=== PATIENT | male | born 1985 | race Caucasian/White ===

== ENCOUNTER 2017-03-01 20:18 | Emergency (ER) ==
[2017-03-01 20:29] VITALS: BMI 22.4
[2017-03-01 20:54] LABS: BASOPHILS # (AUTO) 0.1 K/uL (0-0.2); BASOPHILS % (AUTO) 0.5 % (0.0-3.0); EOSINOPHILS # (AUTO) 0.3 K/ul (0.0-0.7); HEMATOCRIT 47.1 % (42.0-52.0); HEMOGLOBIN 16.2 g/dl (14.0-18.0); IMMATURE GRANULOCYTE % (AUTO) 0.7 % (0.0-5.0); LYMPHOCYTES # (AUTO) 2.8 K/uL (0.60-3.4); MEAN CORPUSCULAR HEMOGLOBIN 28.9 pg (27.0-31.0); MEAN CORPUSCULAR HGB CONC 34.4 (31.8-35.4); MEAN CORPUSCULAR VOLUME 84.1 fl (80.0-94.0); MONOCYTES # (AUTO) 0.6 K/uL (0.4-2.0); MONOCYTES % (AUTO) 6.4 (0-10); NEUTROPHILS # (AUTO) 6.1 K/ul (2.0-6.9); NEUTROPHILS % (AUTO) 61.4; PLATELET COUNT 197 10^3/uL (140-440); WHITE BLOOD COUNT 9.86 K/ul (4.2-10.2)
[2017-03-01 20:56] LABS: ADD URINE MICROSCOPIC NO; BILIRUBIN,URINE Negative (NEGATIVE); KETONES,URINE Negative (NEGATIVE); LEUKOCYTE ESTERASE ,URINE Negative (NEGATIVE); NITRITE,URINE Negative (NEGATIVE); PROTEIN,URINE Negative (NEGATIVE); URINE, BLOOD Negative (NEGATIVE)
--- NOTE | 2017-03-01 21:06 | ED.PDOC ---
General ED Provider: Dr. ROSE DALLAS-ER Chief Complaint: Dizziness Stated Complaint: kacie had spells of dizziness, weakness for over a month Time Seen by Physician: 20:25 Mode of Arrival: Walk-In Information Source: Patient Exam Limitations: No limitations Nursing and Triage Documentation Reviewed and Agree: Yes Neurological Complaint Exam - Dizziness Complaint/Exam Last Known Well: 5 weeks ago Onset: Gradual Symptoms Are: Resolved Timing: Intermittent Episodes Lasting: Minutes Initial Severity: Mild Current Severity: Mild Character: Reports: Weak, Dizzy Aggravating: Reports: None Alleviating: Reports: None Associated Signs and Symptoms: Denies: Nausea, Vomiting, Diaphoresis, Tinnitus, Chest pain, Short of air, Palpitations, Unsteady gait, GI blood loss, Visual changes, Decreased oral intake, Change in medication, Change in diet, OTC meds, Loss of balance Cardiac Risk Factors: Reports: None CVA Risk Factors: Reports: None Related Surgical History: Reports: None JVD Present: No Carotid Bruit Present: No Nystagmus Present: No Gag Reflex Present: Yes Meningeal Signs Positive: No Focal Weakness: Present: None Focal Sensory Loss: Present: None Gait: Normal [id number]: Normal Findings Romberg Test Positive: No Heel to Toe Normal: Yes Differential Diagnoses: Anxiety, Dysrhythmia, BPPV, Meniere's Quality Indicator For Non-Traumatic Chest Pain/Syncope: EKG Performed Review of Systems - Review Of Systems Constitutional: Reports: No symptoms Eyes: Reports: No symptoms Ears, Nose, Mouth, Throat: Reports: No symptoms Respiratory: Reports: No symptoms Cardiac: Reports: No symptoms GI: Reports: No symptoms : Reports: No symptoms Musculoskeletal: Reports: No symptoms Skin: Reports: No symptoms Neurological: Reports: Weakness Endocrine: Reports: No symptoms Hematologic/Lymphatic: Reports: No symptoms All Other Systems: Reviewed and Negative Past Medical History - Past Medical History Previously Healthy: Yes Endocrine: Reports: Unknown Cardiovascular: Reports: Unknown Respiratory: Reports: Unknown Hematological: Reports: Unknown Gastrointestinal: Reports: Unknown Genitourinary: Reports: Unknown Neuro/Psych: Reports: Unknown Musculoskeletal: Reports: Unknown Cancer: Reports: Unknown - Surgical History General Surgical History: Reports: Unknown - Family History Family History: Reports: Unknown - Social History Smoking Status: Current every day smoker, Heavy tobacco smoker, Dips snuff Hx Substance Use: No Alcohol Screening: Occasionally Lives: With family - Immunizations Tetanus Shot up to Date: Yes Physical Exam - Physical Exam Appearance: Well-appearing, No pain distress, Well-nourished Eyes: LALI, EOMI, Conjunctiva clear ENT: Ears normal, Nose normal, Oropharynx normal Neck: Supple Respiratory: Airway patent, Breath sounds clear, Breath sounds equal, Respirations nonlabored Cardiovascular: RRR, Pulses normal, No rub, No murmur GI/: Soft, Nontender, No masses, Bowel sounds normal, No Organomegaly Musculoskeletal: Normal strength, ROM intact, No edema, No calf tenderness Skin: Warm, Dry, Normal color Neurological: Sensation intact Psychiatric: Affect appropriate, Mood appropriate Critical Care Note - Critical Care Note Total Time (mins): 0 Course - Course Hematology/Chemistry: 03/01/17 20:49 03/01/17 20:49 Orders, Labs, Meds: Lab Review 03/01/17 03/01/17 03/01/17 20:37 20:49 20:49 WBC 9.86 RBC 5.60 Hgb 16.2 Hct 47.1 MCV 84.1 MCH 28.9 MCHC 34.4 RDW Coeff of Mely 12.8 Plt Count 197 Immature Gran % (Auto) 0.7 Neut % (Auto) 61.4 Lymph % (Auto) 28.0 Gilliam % (Auto) 6.4 Eos % (Auto) 3.0 Baso % (Auto) 0.5 Immature Gran # (Auto) 0.1 Neut # 6.1 Lymph # 2.8 Gilliam # 0.6 Eos # 0.3 Baso # 0.1 Sodium 137 Potassium 3.8 Chloride 102 Carbon Dioxide 24 Anion Gap 14.8 BUN 16 Creatinine 0.81 Estimated GFR (MDRD) 113.00 BUN/Creatinine Ratio 19.75 Glucose 121 H Calcium 9.4 Total Bilirubin 0.32 AST 21 ALT 18 Alkaline Phosphatase 73 Total Creatine Kinase 117 CK-MB (CK-2) 1.9 CK-MB (CK-2) % 1.99615 Troponin I < 0.0100 Total Protein 7.6 Albumin 4.4 Globulin 3.2 Albumin/Globulin Ratio 1.38 TSH 1.590 Urine Color Yellow Urine Clarity Clear Urine pH 6.0 Ur Specific [place] 1.025 Urine Protein Negative Urine Glucose (UA) Negative Urine Ketones Negative Urine Blood Negative Urine Nitrite Negative Urine Bilirubin Negative Urine Urobilinogen 0.2 Ur Leukocyte Esterase Negative Urine Opiates Screen Ur Oxycodone Screen Urine Methadone Screen Ur Propoxyphene Screen Ur Barbiturates Screen U Tricyclic Antidepress Ur Phencyclidine Scrn Ur Amphetamine Screen U Methamphetamines Scrn U Benzodiazepines Scrn Urine Cocaine Screen U Cannabinoids Screen 03/01/17 20:49 WBC RBC Hgb Hct MCV MCH MCHC RDW Coeff of Mely Plt Count Immature Gran % (Auto) Neut % (Auto) Lymph % (Auto) Gilliam % (Auto) Eos % (Auto) Baso % (Auto) Immature Gran # (Auto) Neut # Lymph # Gilliam # Eos # Baso # Sodium Potassium Chloride Carbon Dioxide Anion Gap BUN Creatinine Estimated GFR (MDRD) BUN/Creatinine Ratio Glucose Calcium Total Bilirubin AST ALT Alkaline Phosphatase Total Creatine Kinase CK-MB (CK-2) CK-MB (CK-2) % Troponin I Total Protein Albumin Globulin Albumin/Globulin Ratio TSH Urine Color Urine Clarity Urine pH Ur Specific [place] Urine Protein Urine Glucose (UA) Urine Ketones Urine Blood Urine Nitrite Urine Bilirubin Urine Urobilinogen Ur Leukocyte Esterase Urine Opiates Screen Negative Ur Oxycodone Screen Negative Urine Methadone Screen Negative Ur Propoxyphene Screen Negative Ur Barbiturates Screen Negative U Tricyclic Antidepress Negative Ur Phencyclidine Scrn Negative Ur Amphetamine Screen Negative U Methamphetamines Scrn Negative U Benzodiazepines Scrn Negative Urine Cocaine Screen Negative U Cannabinoids Screen Negative Orders Category Date Time Status EKG-(ED ONLY) Stat CARDIO 03/01/17 20:35 Completed Electric Trucker [ED STOCK REPLENISHER APPLIED] .ONCE EMERGENCY 03/01/17 20:36 Active CBC W/ AUTO DIFF Stat LAB 03/01/17 20:49 Completed COMPREHENSIVE METABOLIC PANEL Stat LAB 03/01/17 20:49 Completed CREATINE KINASE Stat LAB 03/01/17 20:49 Completed T4 [T4 (THYROXINE)] Stat LAB 03/01/17 20:49 Received TROPONIN I Stat LAB 03/01/17 20:49 Completed TSH [THYROID STIMULATING HORMONE] Stat LAB 03/01/17 20:49 Completed URINALYSIS C & S IF INDICATED Stat LAB 03/01/17 20:37 Completed URINE DRUG SCREEN (RAPID FOR ED) [DRUG SCREEN, URINE, LAB 03/01/17 20:49 Completed RAPID] Stat Ondansetron HCl [Zofran Tab] MEDS 03/01/17 21:37 Discontinued 4 mg PO ONCE STA CT HEAD W/O CONTRAST Stat RADS 03/01/17 20:36 Completed Medications Discontinued Medications Generic Name Dose Route Start Last Admin Trade Name Yasir PRN Reason Stop Dose Admin Ondansetron HCl 4 mg 03/01/17 21:37 03/01/17 21:50 Zofran Tab PO 03/01/17 21:38 4 mg ONCE STA Administration Vital Signs: Temp Pulse Resp BP Pulse Ox 03/01/17 22:49 97.5 F L 72 12 122/68 97 03/01/17 21:03 74 24 121/75 97 03/01/17 20:21 97.2 F L 80 20 149/99 H 97 Departure - Departure Time of Disposition: 00:00 Disposition: HOME SELF-CARE Discharge Problem: Dizziness Instructions: Dizziness (ED) Condition: Good Pt referred to PMD for follow-up: Yes Additional Instructions: f/u with local pcp for further testing Allergies/Adverse Reactions: Allergies No Known Drug Allergies Adverse Reaction (Verified 03/01/17 21:54) Home Medications: Ambulatory Orders 1 [No Reported Medications] 03/01/17 Disposition Discussed With: Patient, Family
[2017-03-01 21:07] LABS: COCAIN SCREEN,URINE NEGATIVE (NEGATIVE)
--- NOTE | 2017-03-01 21:13 | CT ---
EXAM: CT head without contrast 03/03/2017. Sagittal and coronal reformatted images obtained HISTORY: Dizziness COMPARISON: None FINDINGS: There is no evidence of intracranial hemorrhage. The midline is maintained. There is no h ydrocephalus. No cerebellar tonsillar ectopia. Evaluation of the calvarium shows no fracture. Th e mastoid air cells are normally pneumatized. IMPRESSION: No acute intracranial abnormality. Left maxillary sinusitis.
[2017-03-01 21:33] LABS: ALANINE AMINOTRANSFERASE 18 U/L (12-78); ALBUMIN 4.4 g/dL (3.4-5.0); ALBUMIN/GLOBULIN RATIO 1.38; ALKALINE PHOSPHATASE 73 U/L (50-136); ANION GAP 14.8; ASPARTATE AMINO TRANSFERASE 21 U/L (15-37); BILIRUBIN,TOTAL 0.32 mg/dL (0.00-1.20); BLOOD UREA NITROGEN 16 mg/dL (7-18); BUN/CREATININE RATIO 19.75; CALCIUM 9.4 mg/dL (8.2-10.2); CARBON DIOXIDE 24 mmol/L (21-32); CHLORIDE 102 mmol/L (98-107); CREATINE KINASE 117 U/L; CREATININE 0.81 mg/dL (0.60-1.10); GLUCOSE 121 mg/dL (70-100); POTASSIUM 3.8 mmol/L (3.5-5.1); SODIUM 137 mmol/L (136-145); TOTAL PROTEIN 7.6 g/dL (6.4-8.2)
[2017-03-01 21:34] LABS: CREATINE KINASE MB 1.9 ng/ml (0.0-3.6)
[2017-03-01] MEDS ORDERED: ZOFRAN TAB PO STA (21:37)
[2017-03-01 22:50] VITALS: BP 122/68; TEMP 97.5
== END 2017-03-02 00:08 | disposition home or self-care (01) ==
LOC: ED 20:18
DX: R42 Dizziness and giddiness (principal); R53.1 Weakness; F17.210 Nicotine dependence, cigarettes, uncomplicated; F17.220 Nicotine dependence, chewing tobacco, uncomplicated
CPT/HCPCS: 36415; 80053; 80306; 81001; 82550; 82553; 84436; 84443; 84484; 85025; 93005; 93010; 99283